=== PATIENT | female | born 1935 | race Caucasian/White ===

== ENCOUNTER 2018-12-11 12:20 | Emergency (ER) | payer SELFPAY ==
[~2018-12-11] VITALS: Wt 72.7 kg
[~2018-12-11 12:20] MED LIST: ASPIRIN 81 MG; DIABETES MED; GLYBURIDE; METFORMIN 1000 MG; NIFEDIPINE 60 MG
[2018-12-11 13:02] VITALS: BP 142/77; PULSE 84; RESP 20
== END 2018-12-11 17:20 | disposition left against medical advice (07) ==
LOC: E/R 12:20
DX: Z53.21 Procedure and treatment not carried out due to patient leaving prior to being seen by health care provider (principal)